=== PATIENT | female | born 1975 | race Caucasian/White ===

== ENCOUNTER → 2019-02-21 | Outpatient (CLI) | payer OTHER | LOC: ULTRA 09:24 | DX: R10.9 Unspecified abdominal pain (principal); N28.1 Cyst of kidney, acquired; R16.1 Splenomegaly, not elsewhere classified; Z90.49 Acquired absence of other specified parts of digestive tract ==

== ENCOUNTER → 2020-03-10 | Outpatient (CLI) | payer BC, OTHER | LOC: RAD 09:40 | PROVIDERS: ATTEND Nurse Practitioner | DX: U07.1 COVID-19 (principal); J12.82 Pneumonia due to coronavirus disease 2019 ==